=== PATIENT | female | born 1960 | race Caucasian/White ===

== ENCOUNTER 2016-08-17 11:00 | Emergency (ER) | payer OTHER ==
[2016-08-17 11:10] VITALS: BP 124/73; PULSE 85; TEMP 97.8; BMI 34.3
--- NOTE | 2016-08-17 12:10 | PDOC ---
History of Present Illness - General Chief Complaint: Pain Stated Complaint: ABD/LOWER PELVIC PAIN Time Seen by Provider: 08/17/16 11:43 History Source: Patient - History of Present Illness Initial Comments: CHIEF COMPLAINT: 56 y/o afebrile female c/o vaginal itching for the past 2 years. HISTORY OF PRESENT ILLNESS: The patient states she has seen her primary care physician multiple times for this issue and has been given creams and pills but none of them have helped. She does not remember the name of any of the pills or creams. She denies f/c, n/v/d, Cp, SOB, abd pain, back pain, hematuria, dysuria, abnormal vaginal discharge. She has not seen a NETWORK [employer] ARCHITECT for this issue and does not want to take hormones. Vital signs on arrival are within normal limits. REVIEW OF SYSTEMS: GENERAL/CONSTITUTIONAL: No fever/chills. No weakness. No weight change. GASTROINTESTINAL: No abd pain, nausea, vomiting, diarrhea. GENITOURINARY: No dysuria, frequency, or change in urination. MUSCULOSKELETAL: No joint or muscle swelling or pain. No neck or back pain. SKIN: +vaginal itching. NEUROLOGIC: No headache, vertigo, loss of consciousness, or loss of sensation. PHYSICAL EXAM: GENERAL: The patient is awake, alert, and fully oriented, in no acute distress. She is overweight, well appearing and ambulatory. HEAD: Normal with no signs of trauma. ABDOMEN: Soft, non-distended, non-tender even to deep palpation, no hepatomegaly or splenomegaly, no masses. VAGINAL: Normal external and internal vaginal exam. No lesions, dry skin, rashes, erythematous patches noted. Cervix looks normal. No abnormal discharge. EXTREMITIES: Normal range of motion, no edema. NEUROLOGICAL: Normal speech, normal gait. CN II-XII grossly intact. SKIN: Warm, dry, normal turgor, no rashes or lesions noted. Past History - Past Medical History Allergies/Adverse Reactions: Allergies Allergy/AdvReac Type Severity Reaction Status Date / Time No Known Allergies Allergy Verified 08/17/16 11:07 Home Medications: Ambulatory Orders Acetaminophen [Tylenol] 650 mg PO Q4H PRN #20 tablet 04/18/16 Albuterol Sulfate Inhaler - [Ventolin HFA Inhaler -] 1 - 2 inh PO Q4H PRN #1 inhaler 04/18/16 Docusate Sodium [Colace -] 100 mg PO TID #21 capsule 04/18/16 Metformin HCl 500 mg PO DAILY 04/18/16 Other medical history: none - Psycho/Social/Smoking Cessation Hx Anxiety: No Suicidal Ideation: No Smoking History: Never smoked Have you smoked in the past 12 months: No Information on smoking cessation initiated: No Hx Alcohol Use: No Drug/Substance Use Hx: No Substance Use Type: None *Physical Exam - Vital Signs Last Vital Signs Temp Pulse Resp BP Pulse Ox 97.8 F 85 18 124/73 08/17/16 11:08 08/17/16 11:08 08/17/16 11:08 08/17/16 11:08 Medical Decision Making - Medical Decision Making A/P: 56 afebrile female with vaginal itching x 2 years. The patient's vaginal exam was unremarkable. Will refer to a flask pusher. Suggested she follow up as soon as possible. The patient verbalizes understanding of all instructions, has no further questions and is awaiting discharge. *DC/Admit/Observation/Transfer Diagnosis at time of Disposition: Vaginal itching - Discharge Dispostion Disposition: HOME Condition at time of disposition: Good - Referrals Referrals: Tika Curry [Primary Care Provider] - Darrick Munoz MD [Staff Physician] - Call tomorrow - Patient Instructions Printed Discharge Instructions: DI for Vaginal Itching Additional Instructions: Discharge Instructions: -Follow up with Dr. Munoz as soon as possible. Print Language: FRENCH
[2016-08-17 12:41] LABS: URINE APPEARANCE CLEAR; URINE BILIRUBIN NEGATIVE (NEGATIVE); URINE BLOOD NEGATIVE (NEGATIVE); URINE COLOR YELLOW; URINE GLUCOSE (UA) 3+ (NEGATIVE); URINE KETONE NEGATIVE (NEGATIVE); URINE LEUK ESTERASE NEGATIVE (NEGATIVE); URINE NITRITE NEGATIVE (NEGATIVE); URINE PROTEIN NEGATIVE (NEGATIVE); URINE UROBILINOGEN NEGATIVE E.U./dl (0.2-1.0)
== END 2016-08-17 12:52 | disposition home or self-care (01) ==
LOC: JER 11:00
DX: L29.2 Pruritus vulvae (principal)
CPT/HCPCS: 81003; 99282-25

== ENCOUNTER 2018-03-31 14:06 | Emergency (ER) | payer OTHER ==
[2018-03-31 14:19] VITALS: BP 110/64; PULSE 81; TEMP 97.7; BMI 34.3
--- NOTE | 2018-03-31 16:33 | PDOC ---
History of Present Illness - General Chief Complaint: Blood Sugar Problem Stated Complaint: WEAKNESS, ABSCESS BOIL - History of Present Illness Initial Comments: The patient is a 58F w/ a history of T2DM who presents for evaluation of hyperglycemia at home >300 for the last several days. She is prescribed Metformin and Glimepiride at home; however, she has been in [place] for the last three months and has only been taking the Metformin at home because she ran out of Glimepiride. Her primary care doctor was Dr. Curry who reportedly per the patient 03/31/18 16:27 Past History - Past Medical History Allergies/Adverse Reactions: Allergies Allergy/AdvReac Type Severity Reaction Status Date / Time No Known Allergies Allergy Verified 03/31/18 14:16 Home Medications: Ambulatory Orders Albuterol Sulfate Inhaler - [Ventolin HFA Inhaler -] 1 - 2 inh PO Q4H PRN #1 inhaler 04/18/16 Ergocalciferol [Vitamin D2] 50,000 unit PO Q7D@1000 03/31/18 Glimepiride [Amaryl -] 4 mg PO DAILY@0700 03/31/18 Glimepiride [Amaryl -] 4 mg PO DAILY@0700 7 Days #7 tablet 03/31/18 Levothyroxine [Synthroid -] 50 mcg PO DAILY 03/31/18 Sitagliptin Phosphate [Januvia -] 100 mg PO DAILY@0700 03/31/18 Sitagliptin Phosphate [Januvia -] 100 mg PO DAILY@0700 7 Days #7 ud 03/31/18 metFORMIN XR [Glucophage *Xr* -] 750 mg PO BID 03/31/18 - Suicide/Smoking/Psychosocial Hx Smoking History: Never smoked Have you smoked in the past 12 months: No Hx Alcohol Use: No Drug/Substance Use Hx: No Substance Use Type: None Review of Systems - Review of Systems Able to Perform ROS?: Yes Comments:: GENERAL/CONSTITUTIONAL: No fever or chills. No weakness HEAD, EYES, EARS, NOSE AND THROAT: No change in vision. No ear pain or discharge. No sore throat CARDIOVASCULAR: No chest pain or shortness of breath RESPIRATORY: No cough, wheezing, or hemoptysis GASTROINTESTINAL: No nausea, vomiting, diarrhea or constipation GENITOURINARY: No dysuria, frequency, or change in urination; +chronic vaginal itching MUSCULOSKELETAL: +intermittent R breast pain, mammo 5m ago normal. denies lump/ mass. No joint or muscle swelling or pain. No neck or back pain SKIN: No rash NEUROLOGIC: No headache, vertigo, loss of consciousness, or change in strength/ sensation ENDOCRINE: No increased thirst. No abnormal weight change HEMATOLOGIC/LYMPHATIC: No anemia, easy bleeding, or history of blood clots ALLERGIC/IMMUNOLOGIC: No hives or skin allergy 03/31/18 16:30 *Physical Exam - Vital Signs Last Vital Signs Temp Pulse Resp BP Pulse Ox 97.7 F 81 18 110/64 99 03/31/18 14:17 03/31/18 14:17 03/31/18 14:17 03/31/18 14:17 03/31/18 14:17 - Physical Exam Comments: GENERAL: Awake, alert, and fully oriented, in no acute distress HEAD: No signs of trauma, normocephalic, atraumatic EYES: PERRL, EOMI, sclera anicteric, conjunctiva clear ENT: Hearing grossly normal, nares patent, oropharynx clear without exudates. Moist mucosa NECK: Normal ROM, supple, no lymphadenopathy CHEST: breast exam w/o lump or mass. No discharge. Well healed scar on L breast from previous lumpectomy LUNGS: No distress, speaks full sentences, clear to auscultation bilaterally HEART:Regular rate and rhythm, normal S1 and S2, no murmurs appreciated, peripheral pulses normal and equal bilaterally ABDOMEN: Soft, nontender, normoactive bowel sounds. No guarding, no rebound EXTREMITIES : Normal inspection, Normal range of motion, no edema. No clubbing or cyanosis NEUROLOGICAL: Cranial nerves II through XII grossly intact. Normal speech, normal gait, no focal sensorimotor deficits SKIN: Warm, Dry, normal turgor, no rashes or lesions noted 03/31/18 16:30 ED Treatment Course - LABORATORY CBC & Chemistry Diagram: 03/31/18 17:00 03/31/18 17:00 Medical Decision Making - Medical Decision Making The patient is a 58F w/ a history of T2DM and lumpectomy who presents for persistent elevated BG at home (>300), chronic R breast pain, and concern for internal hemorrhoids ED Course CMP Serum Acetone CBC Grade II internal hemorrhoid -Diet, bowel habits discussed 03/31/18 16:30 No leukocytosis No evidence of DKA Hyperglycemia to 305 03/31/18 17:59 Hyperglycemia -Januvia 100mg PO once -Glimepiride 4mg PO once 03/31/18 18:22 Rx for Januvia and Glimepiride sent to patient's pharmacy Plan for D/C w/ PCP f/u Follow up instructions and return precautions given Plan discussed w/ patient who is in agreement Dispo: Home 03/31/18 18:34 *DC/Admit/Observation/Transfer Diagnosis at time of Disposition: Elevated blood sugar, Grade II internal hemorrhoids - Discharge Dispostion Disposition: HOME Condition at time of disposition: Stable Decision to Admit order: No - Prescriptions Prescriptions: Glimepiride [Amaryl -] 4 mg PO DAILY@0700 7 Days #7 tablet Sitagliptin Phosphate [Januvia -] 100 mg PO DAILY@0700 7 Days #7 ud - Referrals Referrals: [facility] [place] [Provider Group] - Patient Instructions Additional Instructions: You were seen in the Emergency Department today for evaluation of elevated blood sugar and a hemorrhoid. Please review the handouts provided at discharge. Please follow up with your primary care physician and referrals within the next 1-3 days. Two prescriptions were sent to the pharmacy you specified. Please take as directed. Return the Emergency Department if you develop fevers, blood in your stool, weakness, worsening symptoms, or any new/concerning symptoms. - Post Discharge Activity
[2018-03-31 17:18] LABS: HEMATOCRIT 41.8 % (32.4-45.2); HEMOGLOBIN 13.9 GM/dL (10.7-15.3); MCH 28.8 pg (25.7-33.7); MCHC 33.2 g/dl (32.0-36.0); MEAN CELL VOLUME 86.9 fl (80-96); MEAN PLT VOLUME 9.2 fl (7.5-11.1); PLATELET COUNT 184 K/MM3 (134-434); RDW 12.6 % (11.6-15.6); WHITE BLOOD COUNT 8.3 K/mm3 (4.0-10.0)
--- NOTE | 2018-03-31 17:33 | PDOC ---
Attending Attestation - HPI HPI: 03/31/18 17:52 The patient is a 58 year old female, with a significant past medical history of DM (noncompliant with medications) and hemorrhoids, who presents to the emergency department with, elevated blood glucose readings. As per patient, her blood glucose readings have been elevated on her at home glucometer. She has not been taking her Amlodipine because she ran out of them (compliant with Metformin). Patient endorses 2 weeks of right breast pain. Her last mammogram was 5 months ago. She denies recent fevers, chills, headache or dizziness. She denies recent nausea, vomit, diarrhea or constipation. She denies recent dysuria, frequency, urgency or hematuria. She denies recent chest pain or shortness of breath. Allergies: NKDA Past surgical history: Left breast lumpectomy. Primary Care Physician: Dr. Curry - Physicial Exam PE: 03/31/18 17:52 GENERAL: Well-appearing, well-nourished. No apparent distress. HEENT: Normocephalic, atraumatic. PERRL, EOM intact. CARDIOVASCULAR: Normal S1, S2. Regular rate and rhythm. BREAST: Refer to resident exam. PULMONARY: Clear to auscultation bilaterally. ABDOMEN: Soft, non-distended, non-tender. EXTREMITIES: Normal ROM in all four extremities. No gross deformities. SKIN: Warm, dry. No rash NEUROLOGICAL: No focal neurological deficits. <Celina Forrest - Last Filed: 03/31/18 17:51> - Resident Resident Name: Gavin Christine - ED Attending Attestation I have performed the following: I have examined & evaluated the patient, The case was reviewed & discussed with the resident, I agree w/resident's findings & plan, Exceptions are as noted - Medical Decision Making 03/31/18 17:33 58 yo female with h/o diabetes presents with several concerns. she states her regular physician is no longer available .She has noted some increased BGMs recently. She denies any active symptoms. No fever,no nausea and no vomiting 03/31/18 18:26 labs reviewed/ pt has negative acetone/ discharged home after receiving her medications <Supriya Atkins - Last Filed: 03/31/18 18:29> Attestations - Attestations 03/31/18 17:52 Documentation prepared by Celina Forrest, acting as bacteriologist medical for Supriya Atkins MD. <Celina Forrest - Last Filed: 03/31/18 17:51> - Attestations Physician Attestation: 03/31/18 18:11 labs reviewed,glucose elevated and pt given her diabetic medications plan follow up with internal medicine group at [facility] <Supriya Atkins - Last Filed: 03/31/18 18:29>
[2018-03-31 17:53] LABS: ALBUMIN 3.7 g/dl (3.4-5.0); ALK PHOS 166 U/L (45-117); ANION GAP 10 MMOL/L (8-16); BILIRUBIN,TOTAL 0.4 mg/dL (0.2-1); BLOOD UREA NITROGEN 10 mg/dL (7-18); CALCIUM 9.4 mg/dL (8.5-10.1); CHLORIDE 100 mmol/L (98-107); CO2 25 mmol/L (21-32); CREATININE 0.9 mg/dL (0.55-1.3); POTASSIUM 3.8 mmol/L (3.5-5.1); SGOT/AST 74 U/L (15-37); SGPT/ALT 84 U/L (13-61); SODIUM 134 mmol/L (136-145); TOT PROT 8.1 g/dl (6.4-8.2)
[2018-03-31 17:56] LABS: GLUCOSE,RANDOM 305 mg/dL (74-106)
[2018-03-31] MEDS ORDERED: sitaGLIPtin PHOSPHATE 100 MG TABLET (FP) PO ONE (18:03)
[2018-03-31] MEDS ORDERED: GLIMEPIRIDE 4 MG TABLET (FP) PO ONE (18:03)
[2018-03-31] MEDS ORDERED: sitaGLIPtin PHOSPHATE 50 MG TABLET ONE (18:05)
== END 2018-03-31 18:53 | disposition home or self-care (01) ==
LOC: JER 14:06
DX: E11.65 Type 2 diabetes mellitus with hyperglycemia (principal); Z79.84 Long term (current) use of oral hypoglycemic drugs; E03.9 Hypothyroidism, unspecified; K64.1 Second degree hemorrhoids
CPT/HCPCS: 36415; 80053; 82009; 85027; 99282-25

== ENCOUNTER 2021-07-10 13:53 | Emergency (ER) | payer OTHER ==
[2021-07-10 14:17] VITALS: BP 150/77; PULSE 94; TEMP 97.8; BMI 30.9
[2021-07-10] MEDS ORDERED: ACETAMINOPHEN 1000 MG/100 ML BAG IVPB ONE (15:17)
[2021-07-10] MEDS ORDERED: MAG HYDROX/AL HYDROX/SIMETH -MYLANTA- ORAL SUSPENSION PO ONE (15:17)
[2021-07-10] MEDS ORDERED: FAMOTIDINE 20 MG TABLET PO ONE (15:17)
[2021-07-10] MEDS ORDERED: FAMOTIDINE 20 MG/50 ML IVPB 20 MG/50 ML MG IVPB ONE (15:37)
[2021-07-10] MEDS ORDERED: MAG HYDROX/AL HYDROX/SIMETH 30 ML UNIT-DOSE CUP ONE (15:37)
[2021-07-10 17:47] LABS: BASO % 0.7 % (0-2.0); EOS % 1.7 % (0-4.5); HEMATOCRIT 39.1 % (32.4-45.2); LYMPH % 43.9 % (8-40); MCH 28.8 pg (25.7-33.7); MCHC 33.3 g/dl (32.0-36.0); MEAN CELL VOLUME 86.5 fl (80-96); MEAN PLT VOLUME 8.7 fl (7.5-11.1); MONO % 7.4 % (3.8-10.2); NEUT % 46.3 % (42.8-82.8); PLATELET COUNT 170 10^3/uL (134-434); RBC 4.51 M/mm3 (3.60-5.2); WHITE BLOOD COUNT 7.3 K/mm3 (4.0-10.0)
[2021-07-10 18:00] LABS: PH,URINE 6.5 (5.0-8.0); URINE APPEARANCE CLEAR; URINE BILIRUBIN NEGATIVE (NEGATIVE); URINE COLOR YELLOW; URINE GLUCOSE (UA) NEGATIVE (NEGATIVE); URINE KETONE NEGATIVE (NEGATIVE); URINE LEUK ESTERASE NEGATIVE (NEGATIVE); URINE NITRITE NEGATIVE (NEGATIVE); URINE PROTEIN NEGATIVE (NEGATIVE); URINE UROBILINOGEN 0.2 mg/dL (0.2-1.0)
[2021-07-10 18:14] LABS: CHLORIDE 105 mmol/L (98-107); SODIUM 138 mmol/L (136-145)
[2021-07-10 18:17] LABS: ALBUMIN 3.6 g/dl (3.4-5.0); ANION GAP 9 MMOL/L (8-16); CO2 25 mmol/L (21-32); LIPASE 158 U/L (73-393)
[2021-07-10 18:18] LABS: BLOOD UREA NITROGEN 8.1 mg/dL (7-18); GLUCOSE,RANDOM 203 mg/dL (74-106)
[2021-07-10 18:20] LABS: CREATININE 0.7 mg/dL (0.55-1.3); SGOT/AST 44 U/L (15-37); SGPT/ALT 50 U/L (13-61)
[2021-07-10 18:22] LABS: BILIRUBIN,TOTAL 0.4 mg/dL (0.2-1); TOT PROT 7.5 g/dl (6.4-8.2)
[2021-07-10 18:23] LABS: ALK PHOS 164 U/L (45-117)
== END 2021-07-10 18:25 | disposition home or self-care (01) ==
LOC: JER 13:53
PROC: 3E0333Z Introduction of Anti-inflammatory into Peripheral Vein, Percutaneous Approach (ICD-10-PCS; principal; 2021-07-10)
DX: R10.13 Epigastric pain (principal)
CPT/HCPCS: 36415; 80053; 81003; 82550; 83690; 84484; 85025; 93005; 93010; 96374; 99284-25; J0131